=== PATIENT | female | born 1955 | race Caucasian/White ===

== ENCOUNTER 2018-12-15 18:46 | Emergency (ER) | payer OTHER ==
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
[2018-12-16] MEDS ORDERED: LIDOCAINE 5% (700 MG) TRANSDERMAL ADH..PATCH TP ONE (00:13)
[2018-12-16] MEDS ORDERED: IBUPROFEN 600 MG TABLET PO ONE (00:13)
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
[2018-12-16 00:27] VITALS: BP 148/84
== END 2018-12-16 00:27 | disposition home or self-care (01) ==
LOC: ER 18:46
DX: R07.81 Pleurodynia (principal); V43.52XA Car driver injured in collision with other type car in traffic accident, initial encounter
CPT/HCPCS: 71046; 99283